=== PATIENT | female | born 1975 | race Caucasian/White ===

== ENCOUNTER → 2017-04-15 | Day surgery (SDC) | payer OTHER ==
--- NOTE | 2017-04-14 12:17 | MH ---
cc: BRENDON ROGERS M.D. DATE OF ADMISSION: 04/15/2017 DATE OF 1975 INDICATIONS A 41-year-old female with chronic tonsillitis and obstructive symptoms. She has had seven infections in the past year. She has had pain when eating, trouble with sleeping at night with her pain. She has enlarged tonsils with obstruction and deep crypts, debris and tonsilliths. She is to undergo tonsillectomy. PAST MEDICAL HISTORY As above. CURRENT MEDICATIONS 1. Azithromycin. 2. Clindamycin. 3. Prednisone. MEDICATION ALLERGIES PENICILLIN. PHYSICAL EXAMINATION GENERAL: A well-developed, well-nourished female in no apparent distress. HEENT: Normocephalic, atraumatic. Extraocular motions intact. External ear canals clear. Lips, oral mucosa and oropharynx show no lesion. Tonsils 3+ with erythema, debris, deep crypts. NECK: The neck shows no masses. CHEST: Clear to auscultation. HEART: Regular rate. ABDOMEN: Soft. EXTREMITIES: No lesions. NEUROLOGIC: Exam nonfocal. ASSESSMENT A 41-year-old female with chronic, recurrent tonsillitis, tonsil hypertrophy. She has not responded to medical therapy. PLAN The plan is for tonsillectomy. The risks and benefits were discussed with the patient. The risks include are not limited to those of anesthesia, bleeding, unfavorable scarring, velopharyngeal insufficiency, dehydration, depression, abscess, voice change. bleeding. The patient states she understands and accepts the risks of the procedure. MD MARIANA Cunningham/ZEINA /11:56 AM /12:05 PM
[~2017-04-15] VITALS: Ht 172.7 cm; Wt 100.1 kg
[~2017-04-15] MED LIST: *LABETALOL HCL 100 MG/20 ML VIAL PERIprocedural Use ONLY ONE; *morphine SULFATE 8 MG/ML PERIprocedure ONLY ONE; ACETAMINOPHEN 1000 MG/100 ML 100 ML IV ONE; ACETAMINOPHEN 325MG/HYDROcodone 7.5MG/15ML UDC PO PRN; CHLORHEXIDINE GLUCONATE 2 % 1 PACK (2 CLOTHS) TOPICAL PRN; DO NOT ADM ANY ANTICOAGULANT DRUGS PRN; INSULIN HUMAN REGULAR 1,000 UNITS/10 ML VIAL SQ PRN; LACTATED RINGER'S 1000 ML IV PRN; METOPROLOL TARTRATE 25 MG TAB PO PRN; MIDAZOLAM HCL 2 MG/2 ML VIAL ONE; MORPHINE SULFATE 4 MG/ML INJ IV PRN; ONDANSETRON HCL 4 MG/2 ML VIAL IV PUSH ONE; ONDANSETRON HCL 4 MG/2 ML VIAL IV PUSH PRN; POVIDONE IODINE 5% (ANTISEPSIS KIT) 4 APPLICATIONS EACH NARE PRN; PROPOFOL 200 MG/20 ML AMP IV ONE; SODIUM CHLORID 0.9% 500 ML IV PRN; ceFAZolin INJ 1,000 MG VIAL ONE
[2017-04-15 07:52] LABS: AUTOMATED NEUTROPHIL # 5.3 TH/MM3 (1.8-7.7); BASOPHIL # 0.1 TH/MM3 (0-0.2); BASOPHIL % 1.5 % (0.0-2.0); EOSINOPHIL # 0.2 TH/MM3 (0-0.4); EOSINOPHIL % 2.6 % (0.0-4.0); HEMATOCRIT 40.1 % (35.0-46.0); HEMO FLAGS DIFF FINAL; LYMPH % 30.3 % (9.0-44.0); LYMPHOCYTE # 2.8 TH/MM3 (1.0-4.8); MEAN CELL VOLUME 84.8 FL (80.0-100.0); MEAN CORPUSCULAR HEMOGLOBIN 28.7 PG (27.0-34.0); MEAN CORPUSCULAR HGB CONC 33.8 % (32.0-36.0); MONO % 7.6 % (0.0-8.0); PLATELET COUNT 272 TH/MM3 (150-450); RED BLOOD COUNT 4.73 MIL/MM3 (4.00-5.30); RED CELL DISTRIBUTION WIDTH 14.5 % (11.6-17.2); WHITE BLOOD COUNT 9.2 TH/MM3 (4.0-11.0)
--- NOTE | 2017-04-15 08:41 | MP ---
cc: BRENDON ROGERS M.D. DATE OF SURGERY: 04/15/2017 DATE OF : 1975 INDICATIONS A 41-year-old female with chronic recurrent tonsillitis. She has had debris and deep crypts and halitosis. She has not responded to medical therapy. Plan is for tonsillectomy. PREOPERATIVE DIAGNOSIS Chronic tonsillitis. POSTOPERATIVE DIAGNOSIS Chronic tonsillitis. PROCEDURE Tonsillectomy. SUMMARY The patient was brought to the operating room and placed in supine position, successfully placed under general anesthesia and prepared in the usual fashion for this procedure. The oral cavity was exposed with a retractor. No submucous cleft. The right tonsil was removed with coblation technique from superior to inferior. The left tonsil was removed in a similar fashion. Both tonsillar beds were inspected for hemostasis, obtained by suction cautery. She was suctioned. Retractors were removed. She was awakened, extubated and taken to Recovery in stable condition. MD MARIANA Cunningham/SLADE /8:23 AM /8:28 AM
[2017-04-15 13:40] VITALS: BP 127/82; PULSE 73; RESP 16; TEMP 96.8; O2SAT 98
== END | disposition home or self-care (01) ==
LOC: HSDC 06:58
PROVIDERS: ATTEND Specialist
DX: J35.01 Chronic tonsillitis (principal); E66.9 Obesity, unspecified; Z68.33 Body mass index [BMI] 33.0-33.9, adult
CPT/HCPCS: 00170; 42826; 85025; 88304; J0131; J0690; J2250; J2270; J2405; J3010

== ENCOUNTER 2017-06-25 14:32 | Emergency (ER) | payer OTHER ==
[~2017-06-25] VITALS: Ht 172.7 cm; Wt 102.0 kg
[2017-06-25 14:42] VITALS: BP 153/73; PULSE 104; RESP 16; TEMP 98.5; O2SAT 99
[2017-06-25] MEDS ORDERED: KETOROLAC TROMETHAMINE 60 MG/2 ML (IM) VIAL IM ONE (16:00)
--- NOTE | 2017-06-25 16:29 | PD ---
HPI Chief Complaint: Musculoskeletal Complaint Time Seen by Provider: 15:02 Travel History International Travel<30 days: No Contact w/Intl Traveler<30days: No Traveled to known affect area: No History of Present Illness HPI 41-year-old female here for evaluation of nontraumatic right knee pain and swelling times one day. Patient has history of arthritis. She does not recall an injury. She reports pain with weightbearing and full flexion of the knee. She denies pain in the calf or lower extremity swelling. The pain is constant and worse with movement and weightbearing. Slightly relieved with rest. Severity is moderate. PFSH Past Medical History Medical History: Denies Significant Hx Cancer: No Diabetes: No Endocrine: No Hepatitis: No Immune Disorder: No Psychiatric: No Thyroid Disease: No ?: Not LMP: 05/29/2017 Past Surgical History Abdominal Surgery: Yes (CHOLECYSTECTOMY) AICD: No Body Medical Devices: none Cardiac Surgery: No Ear Surgery: No Eye Surgery: No Gynecologic Surgery: Yes (C-CESTION X2) Joint Replacement: No Oral Surgery: No Pacemaker: No Thoracic Surgery: No Social History Tobacco Use: No Substance Use: No Allergies-Medications (Allergen,Severity, Reaction): Coded Allergies: penicillin G (Unverified Allergy, Severe, BLISTERS,HIVES, 06/25/17) Reported Meds & Prescriptions Reported Meds & Active Scripts Active No Active Prescriptions or Reported Medications Review of Systems Except as stated in HPI: all other systems reviewed are Neg General / Constitutional: No: Fever Physical Exam Narrative GENERAL: Well-nourished, well-developed patient. SKIN: Focused skin assessment warm/dry. HEAD: Normocephalic. EYES: No scleral icterus. No injection or drainage. NECK: Supple, trachea midline. No JVD or lymphadenopathy. CARDIOVASCULAR: Regular rate and rhythm without murmurs, gallops, or rubs. RESPIRATORY: Breath sounds equal bilaterally. No accessory muscle use. GASTROINTESTINAL: Abdomen soft, non-tender, nondistended. MUSCULOSKELETAL: No cyanosis, or edema. Right lower extremity: Moderate swelling to the right anterior knee with mild tenderness. No erythema or warmth. Small joint effusion. Patient has limited flexion past 90 due to pain. 2+ dorsal pedis pulse. No calf swelling or tenderness. BACK: Nontender without obvious deformity. No CVA tenderness. Data Data Last Documented VS Vital Signs Date Time Temp Pulse Resp B/P (MAP) Pulse Ox O2 Delivery O2 Flow Rate FiO2 06/25/17 14:42 98.5 104 16 153/73 (99) 99 Orders Orders Knee, Complete (4vws) (06/25/17 ) Ketorolac Inj (Toradol Inj) (06/25/17 16:00) Splint Or Brace Apply/Monitor (06/25/17 17:07) MDM Medical Decision Making Medical Screen Exam Complete: Yes Emergency Medical Condition: Yes Differential Diagnosis Arthralgia, knee sprain/strain, joint effusion Narrative Course 41-year-old female here for evaluation of nontraumatic right knee pain times one day. Patient has history of arthritis. She cannot recall an injury. On exam she has mild swelling to the anterior aspect a small joint effusion. No signs of infection or septic joint. The extremity is Norvasc intact. X-ray pending X-ray of the right knee: Moderate size joint effusion without evidence of fracture dislocation. X-ray findings discussed with patient. Knee immobilizer and crutches applied. Patient advised to follow-up with or throat. NSAIDs as needed for pain. Patient verbalizes understanding and agrees to plan Diagnosis Primary Impression: Right knee pain Qualified Codes: M25.561 - Pain in right knee Referrals: Orthopedist Additional Instructions: Ice and elevate the extremity. Use the Keith wrap for support. Use crutches for weightbearing. Take [id number] Motrin 600-800 mg every 6-8 hours as needed for pain. Make an appointment for follow-up with the orthopedic doctor. Scripts No Active Prescriptions or Reported Meds Disposition: 01 DISCHARGE HOME Condition: Stable Princess Killian Jun 25, 2017 16:29
--- NOTE | 2017-06-25 16:57 | RADRPT ---
EXAM DATE/TIME: 06/25/2017 15:55 [facility] COMPARISON: No previous studies available for comparison. INDICATIONS : Right knee pain and swelling; No known injury. MEDICAL HISTORY : None. SURGICAL HISTORY : None. ENCOUNTER: Initial ACUITY: 2 days PAIN SCORE: 10/10 LOCATION: Right lateral knee FINDINGS: There is a moderate size suprapatellar knee joint effusion. Mild degenerative changes are noted invo lving the patellofemoral and femorotibial joints. There is no acute fracture or dislocation. A loos e body is noted within the posterior joint space. CONCLUSION: 1. Moderate-sized suprapatellar knee joint effusion. 2. Mild degenerative changes involving the patellofemoral and femorotibial joints. 3. Probable loose body within the posterior medial joint space. 4. No acute fracture or dislocation. Fahad Villatoro MD on June 25, 2017 at 16:48 Board Certified Radiologist. This report was verified electronically.
[2017-06-25 17:20] VITALS: RESP 16
== END 2017-06-25 18:12 | disposition home or self-care (01) ==
LOC: PHEFT 14:32
DX: M25.561 Pain in right knee (principal); M25.461 Effusion, right knee
CPT/HCPCS: 73564; 96372; 99284; E0113; J1885; L1830